=== PATIENT | female | born 1960 | race Caucasian/White ===

== ENCOUNTER 2018-03-08 09:26 | Emergency (ER) | payer MEDICARE, MEDICAID | END 2018-03-08 10:43 | disposition home or self-care (01) | LOC: M ED 09:26 | DX: S52.615A Nondisplaced fracture of left ulna styloid process, initial encounter for closed fracture (principal); W01.0XXA Fall on same level from slipping, tripping and stumbling without subsequent striking against object, initial encounter; Y92.89 Other specified places as the place of occurrence of the external cause; F17.200 Nicotine dependence, unspecified, uncomplicated; Z79.899 Other long term (current) drug therapy | CPT/HCPCS: 73110 ==